=== PATIENT | female | born 1985 | race Caucasian/White ===

== ENCOUNTER → 2019-09-30 08:57 | Outpatient (BNVA) | payer MEDICAID, SELFPAY | PROVIDERS: PCP Family Medicine; Referring Provider Family Medicine; Visit Provider Psychiatry & Neurology Neurology | DX: M54.2 Cervicalgia (principal); M79.602 Pain in left arm; M79.601 Pain in right arm | CPT/HCPCS: 95886; 95912 ==

== ENCOUNTER 2019-12-24 05:47 | Day surgery (SDC) | payer MEDICAID, SELFPAY ==
[2019-12-24 05:58] VITALS: BP 130/84; PULSE 60; RESP 16; TEMP 35.9; O2SAT 97
--- NOTE | 2019-12-24 06:15 | W.PM.OPSUD ---
Surgery/Procedure H&P Update DATE OF PROCEDURE: December 24, 2019 DATE H&P PERFORMED: 12/15/19 H&P UPDATE INFORMATION: I have reviewed H&P completed within last 30 days, I have examined patient prior to procedure and No changes to prior documentation PREOP DIAGNOSIS: Morbid obesity associated with chronic GERD PRIMARY INDICATION FOR PROCEDURE: The same PLANNED PROCEDURE: Operation Date: 12/24/19 07:00 Proposed Procedures p EGD/58423/K21.9(Not Applicable) - Jose Giles MD
[2019-12-24] MEDS: sodium chloride 0.9% 1,000 ML 30 ML IV (06:19)
[2019-12-24 06:25] LABS: OR HCG Qualitative Urine Negative (Negative)
--- NOTE | 2019-12-24 06:25 | ANES.PREANE2 ---
Pre-Anesthetic Assessment Pre-Anesthetic Assessment: Height/Weight: Height 1.65 m Weight 129.274 kg Temp Pulse Resp BP Pulse Ox 96.6 F L 60 16 130/84 97 12/24/19 05:58 12/24/19 05:58 12/24/19 05:58 12/24/19 05:58 12/24/19 05:58 Preop Diagnosis: Morbid obesity associated with chronic GERD Proposed Procedure: Operation Date: 12/24/19 07:00 Proposed Procedures p EGD/41753/K21.9(Not Applicable) - Jose Giles MD Familial anesthetic complications: None Was Beta Charlie taken within 24 hours: N/A Last intake: Intake Last Liquid Date 12/23/19 Last Liquid Time 21:00 Last Solid Date 12/23/19 Last Solid Time 20:00 Social: Social History: No alcohol and No tobacco Exam: Pre-Anes Outpt Exam: alert, oriented x 3, clear to auscultation bilaterally and regular rate & rhythm Airway: Cervical ROM: WNL MP: 2 Dentition: Full Pulmonary: Pulmonary: Asthma (advairs 2x a day, doesn' require emergency inhaler) and Sleep apnea CV/HEM: Comments: states she takes hctz for swelling in hands in feet : : None reported Hepatic: Hepatic: None reported GI: GI: GERD Metabolic: Metabolic: Morbid obesity Musc/skel: Musc/skel: None reported Neuropsych: Neuropsych: None reported Anesthetic Plan: ASA status: 2 Anesthesia: MAC Risk of > 500 ml blood loss (7ml/kg in children): No Meds/Allergies Current Medications: Current Medications Generic Name Dose Route Start Last Admin Trade Name Freq PRN Reason Stop Dose Admin Sodium Chloride 1,000 mls @ 30 ml s/hr 12/24/19 06:00 12/24/19 06:19 Sodium Chloride 0.9% IV 30 mls/hr .Q24H LLOYD Administration PFSH Anesthesia PFSH: Medical History Anxiety Asthma GERD (gastroesophageal reflux disease) Hypertension Obesity Surgical History History of colonoscopy with polypectomy History of esophagogastroduodenoscopy (EGD) History of laparoscopic cholecystectomy History of tubal ligation Family History Denies family history of Anesthesia complication Bleeding disorder Social History Smoking and tobacco status: never smoked Second hand smoke exposure: No Alcohol intake: never Adopted: No Caregiver/support person: Yes Lives independently: Yes Household members: significant other Housing: House service: No Current occupational status: unemployed Current occupational exposures/hazards: No History of recent travel: No Sexually active: Yes Current gender identity: Female Ofelia/Mormonism: None Data Anesthesia Cardiac Studies: No Data to Display
[2019-12-24 07:05] VITALS: BP 106/73; PULSE 52; RESP 16; TEMP 36.7; O2SAT 96
--- NOTE | 2019-12-24 07:09 | ANE.PACU2 ---
Inpatient post-anesthesia follow up: Airway intact: Yes Vital signs: Temperature 98.0 F Pulse Rate 52 Respiratory Rate 16 Blood Pressure 106/73 Pulse Oximetry 96 Oxygen Delivery Me thod Room Air Oxygen Flow Rate Fraction of Inspir ed Oxygen Hydration adequate: Yes Nausea and vomiting: No Pain level: 1 Mental status: Baseline
[2019-12-24 07:12] VITALS: BP 116/77; PULSE 57; RESP 16; O2SAT 100
[2019-12-25 07:09] LABS: H. Pylori / CLO Test Negative
== END 2019-12-24 07:30 | disposition home or self-care (01) ==
PROVIDERS: PCP Family Medicine; Visit Provider Surgery
PROC: 0DJ08ZZ Inspection of Upper Intestinal Tract, Via Natural or Artificial Opening Endoscopic (ICD-10-PCS; CPT 43235; principal; 2019-12-24 07:00)
DX: K21.9 Gastro-esophageal reflux disease without esophagitis (principal); K29.70 Gastritis, unspecified, without bleeding; E66.01 Morbid (severe) obesity due to excess calories; Z68.42 Body mass index [BMI] 45.0-49.9, adult; F41.9 Anxiety disorder, unspecified; J45.909 Unspecified asthma, uncomplicated; I10 Essential (primary) hypertension
CPT/HCPCS: 43239; 12345; 81025; 84703; 87077; J2001; J2704; J7030

== ENCOUNTER 2020-01-21 20:06 | Inpatient (IN) | payer MEDICAID, SELFPAY ==
[2020-01-21 20:08] VITALS: BP 100/62; PULSE 66; RESP 18; TEMP 36.4; O2SAT 94; BMI 40.9
--- NOTE | 2020-01-21 20:21 | ECG_ITS ---
Measurements Intervals [place] Rate: 46 P: 28 [place]: 160 QRS: 18 QRSD: 88 T: 0 QT: 507 QTc: 447 SINUS BRADYCARDIA NONSPECIFIC T-WAVE ABNORMALITY No previous ECG available for comparison Electronically Signed On 01-22-2020 20:53:02 CDT by Jon Hinojosa M.D. [id number]
--- NOTE | 2020-01-21 20:29 | PC.NURSE ---
I called Poison control and spoke to ELIAS Bunn, she is sending information to the ER on this patient and information relayed to Dr. Calloway.
[2020-01-21 20:36] LABS: Basophils % 0.4 %; Eosinophils # 0.1 10^3/uL (0.0-0.8); Eosinophils % 1.3 %; Hematocrit 40.1 % (37.0-47.0); Hemoglobin 13.5 g/dL (11.5-15.3); Lymphocytes % 28.2 %; Mean Corpuscular HGB Conc 33.7 g/dL (30.0-36.0); Mean Corpuscular Hemoglobin 29.7 pg (28.0-34.0); Mean Corpuscular Volume 88.3 fL (81-99); Mean Platelet Volume 12.2 fL (7.4-10.4); Monocytes # 0.8 10^3/uL (0.2-0.9); Monocytes % 11.1 %; Neutrophils # 4.1 10^3/uL (1.8-7.7); Neutrophils % 58.9 %; Nucleated Red Blood Cells % 0 %; Platelet Count 257 10^3/cmm (130-400); Red Blood Count 4.54 10^6/uL (4.1-5.3); Red Cell Distribution Width 12.5 % (12.1-15.1)
[2020-01-21 20:57] LABS: Alanine Aminotransferase 18 U/L (0-33); Albumin Level 4.6 g/dL (3.5-5.2); Alkaline Phosphatase 67 IU/L (35-105); Anion Gap 16.4 (5-19); Blood Urea Nitrogen 11 mg/dL (6-20); Calcium 8.6 mg/dL (8.5-10.5); Carbon Dioxide 25 mmol/L (22-29); Chloride 100 mmol/L (98-107); Globulin 2.5 g/dL (1.3-4.6); Glomerular Filtration Rate 95.8 mL/min (90-130); Glucose 116 mg/dL (65-115); Osmolality Calculated 283 mOsm/kg (285-295); Potassium 3.4 mmol/L (3.5-5.1); Salicylate 0.4 mg/dL (3-10); Sodium 138 mmol/L (136-145); Total Bilirubin 0.3 mg/dL (0.15-1.2); Total Protein 7.1 g/dL (6.6-8.7)
[2020-01-21 21:00] LABS: ABG PCO2 42.5 mmHg (35-45); ABG PH Result 7.41 (7.35-7.45); Arterial Blood Gas Hematocrit 39.7 % (37-47); Base Excess ABG 1.9 mmol/L (-2.0-2.0); Blood Gas Allen Test Pos; Blood Gas Sample Site Radial, left; Blood Gas Sample Type Arterial; HCO3 ABG 26.9 mmol/L (22-26); Oxygen Device ROOM AIR; PO2 ABG 86.4 mmHg (80.0-100.0)
[2020-01-21 21:02] VITALS: BP 109/54; PULSE 45; RESP 14; O2SAT 96
[2020-01-21 21:49] LABS: Acetaminophen < 5.0 ug/mL (10-30); Alcohol Level < 10 mg/dL (0-10); Aspartate Amino Transferase 24 U/L (0-32)
[2020-01-21 21:58] LABS: HCG Qualitative Urine. Negative (Negative)
[2020-01-21 22:25] LABS: Urine Appearance Hazy (CLEAR); Urine Color Yellow (Yellow); pH Urine 5 (5-7)
[2020-01-21 22:26] LABS: Add Urine Microscopic? YES; Bilirubin Urine Neg (NEGATIVE); Blood Urine 2+ (Negative); Glucose Urine UA Norm (Normal); Ketones Urine Negative (Negative); Leukocyte Esterase Urine Negative (Negative); Nitrate Urine Negative (Negative); Protein Urine Neg (Negative); Specific Gravity, Urine 1.015 (1.005-1.030); Urobilinogen Urine Norm (Negative)
[2020-01-21 22:33] LABS: Amphetamines Screen Urine Negative (Negative); Barbiturates Screen Urine Negative (Negative); Benzodiazepines Screen Urine Negative (Negative); Cocaine Screen Urine Negative (Negative); Opiate Screen Urine Negative (Negative); PCP Screen Urine Negative (Negative); THC Screen Urine Negative (Negative)
[2020-01-21 22:41] VITALS: BP 97/50; PULSE 48; RESP 14; O2SAT 99
[2020-01-21 22:42] LABS: Bacteria Urine 1+; RBC Urine RARE /hpf (0-2); Squamous Epithelial Cell Urine 0-4 (0-5); WBC Urine RARE /hpf (0-5)
--- NOTE | 2020-01-21 23:15 | P.HP_ITS ---
Providers/Chief Complaint Primary Care Provider: Guilherme Rush Chief Complaint: OVERDOSE ATTEMPT History of Present Illness Marco Antonio Shelton is a 34 year old female who carries a history of morbid obesity, anxiety, hypertension, GERD was brought in by EMS after drug overdose. Patient is stating that she never attempted any suicidal attempts in the past, today she had an argument with her boyfriend who left her today, she left a text message to her cousin and took multiple tablets as an suicidal attempt. She took 15 tablets of 50 mg of trazodone, 9 tablets of 4 tizanidine and 9 to 10 tablets of Lexapro 10 mg. Her cousin checked on her right away, EMS was called, and route to the hospital she was bradycardic. Patient is denying any fever, chest pain, shortness of breath, diarrhea, irritability endorses suicidal ideation. She has 2 sons(10& 8-year-old). Messages left for her cousin was to take care of her children. Diagnostics in the ER revealed hypotension systolic blood pressure 96 mmHg, map 65, patient is awake alert able to protect her airways, she is drowsy, Bradycardia heart rate ranging between 55-59 Narcan was not given Review of Systems Const: Reports: body aches, fatigue, malaise and change in sleep pattern; Denies: fever(s) or chills Eyes: Denies: change in vision ENMT: Denies: throat pain Card: Denies: chest pain Resp: Denies: dyspnea GI: Denies: abdominal pain : Denies: flank pain Musc: Denies: neck pain Skin/Breast: Denies: rash Neuro: Denies: headache(s) Psych: Reports: depression and suicidal ideation Endo: Denies: polyuria Ramiro/Lymph: Denies: easy bruising All/Imm: Denies: urticaria Medications/Allergies Home Medications Medication Instructions Recorded Confirmed Last Taken Type escitalopram oxalate 10 mg tablet 10 mg PO DAILY 12/15/19 01/07/20 1 Day Ago History ~12/23/19 fluticasone 500 mcg-salmeterol 50 1 inh INHALATION BID 12/15/19 01/07/20 1 Day Ago History mcg/dose blistr powdr for ~12/23/19 inhalation hydrochlorothiazide 12.5 mg tablet 12.5 mg PO DAILY 12/15/19 01/07/20 12/24/19 History omeprazole 20 mg capsule,delayed 20 mg PO DAILY 12/15/19 01/07/20 12/24/19 History release simvastatin 20 mg tablet 20 mg PO DAILY 12/15/19 01/07/20 12/24/19 History tizanidine 4 mg capsule 4 mg PO Q6H PRN cap 12/15/19 01/07/20 2 Days Ago H istory ~12/22/19 trazodone 50 mg tablet 50 mg PO DAILY 12/15/19 01/07/20 1 Day Ago History ~12/23/19 Allergies Allergy/AdvReac Type Severity Reaction Status Date / Time No Known Allergies Allergy Verified 01/07/20 14:58 PFSH Acute PFSH: Medical History Anxiety Asthma Gastritis GERD (gastroesophageal reflux disease) Hypertension Obesity Surgical History History of colonoscopy with polypectomy History of esophagogastroduodenoscopy (EGD) History of laparoscopic cholecystectomy History of tubal ligation Family History Denies family history of Anesthesia complication Bleeding disorder Social History Smoking and tobacco status: never smoked Second hand smoke exposure: No Alcohol intake: never Adopted: No Caregiver/support person: Yes Lives independently: Yes Household members: significant other Housing: House service: No Current occupational status: unemployed Current occupational exposures/hazards: No History of recent travel: No Sexually active: Yes Current gender identity: Female Ofelia/Voodoo: None Vitals/I&O/Wt Last Vital Signs Temp 97.5 F L 01/21/20 20:08 Pulse 48 L 01/21/20 22:41 Resp 14 01/21/20 22:41 BP 97/50 01/21/20 22:41 Pulse Ox 99 01/21/20 22:41 Weight last 48 hrs Weight 111.584 kg Physical Exam Narrative: EXAM NARRATIVE: Head to toe examination Morbidly obese female lying comfortably in her bed Able to answer my questions appropriately but somnolent Able to protect her airway Bradycardia heart rate 55-59, map 65 No neurological deficit S1, S2 sinus bradycardia No signs of heart failure Abdomen soft, distended, visceral obesity Lungs are clear to auscultation EOMI, PERRLA, Skin does not show any sign ischemia gangrene ulcer or dehydration Active suicidal thoughts Data : 01/21/20 18:58 01/21/20 18:58 A&P Assessment and plan (1) Drug overdose: Status: Acute Qualifiers: Encounter type: initial encounter Injury intent: intentional self-harm Qualified Code(s): T50.902A - Poisoning by unspecified drugs, medicaments and b iological substances, intentional self-harm, initial encounter (2) Suicide attempt by multiple drug overdose: Status: Acute Qualifiers: Encounter type: initial encounter Qualified Code(s): T50.912A - Poisoning by multiple unspecified drugs, medicaments and biological substances, intentional self-harm, initial encounter (3) GERD (gastroesophageal reflux disease): Status: Acute (4) Obesity: Status: Acute Additional A&P Information Multiple drug overdose with suicidal attempt -96-hour hold ICU overnight monitoring Trazodone has alpha-1 H1 blocking activity as well and half-life is about 9 to 10 hours and prolonged in obese patients Currently mean arterial pressure is around 65, -Monitor liver function, monitor for hypotension orthostasis, serotonin syndrome -No active fever, shivering diarrhea muscle rigidity or seizures -QTc 447 -Would use fluids and monitor overnight to see if she would require vasopressors for prolonged hypotension Psych consult once she is stable DVT prophylaxis: Lovenox I will keep her n.p.o. for now because of her somnolent condition Attestations Medical Necessity Statement*: Anticipating stay in the hospital cross more than 2 midnights currently on 96-hour hold for suicidal attempt currently bradycardic and hypotension requiring ICU for closer monitoring Time Spent in Patient Care: 60 Coding Level of Care Code Acute Brake Press Operator for Leleg Fwd Diagnoses Drug overdose T5. Encounter type: initial encounter Injury intent: intentional self-harm Suicide attempt by multiple drug overdose T5. Encounter type: initial encounter GERD (gastroesophageal reflux disease) K21.9 Obesity E66.9
--- NOTE | 2020-01-21 23:16 | ED_ITS ---
HPI - Overdose General: Chief Complaint: Overdose Stated Complaint: OVERDOSE ATTEMPT Time Seen by Provider: 01/21/20 20:08 Source: patient and EMS Mode of arrival: EMS Limitations: no limitations History of Present Illness: HPI Narrative: 34-year-old female patient with a history of depression presents to the emergency department after an intentional drug overdose in a suicide attempt. According to the patient she took 15 tablets of the 50 mg trazodone tablets, 20 800 mg ibuprofen tablets, 9 tablets of tizanidine 4 mg each, 9 tablets of Lexapro 10 mg each. After she took the medication she called her friend to tell her friend to take care of her children and the friend rushed over and induced vomiting. According to EMS they did see some of the pills in her vomitus. Patient complains of being drowsy but otherwise no physical complaints. She apparently also tried to cut her wrist but she said the knife was blunt. The patient denies any prior suicide attempts. complaint: intentional overdose Onset (ago): hour(s) (2) Time: 18:00 Review of Systems General: Reports: 10 or more systems reviewed and unremarkable except in HPI and below Const: Denies: fever(s), chills or body aches Eyes: Denies: change in vision or blurry vision ENMT: Denies: throat pain, enlarged tonsils, odynophagia, hoarseness, mouth pain or swelling of lips/tongue Card: Denies: palpitations, irregular heart rhythm, edema or swelling of feet/ankles Resp: Denies: dyspnea, productive cough or non-productive cough GI: Denies: abdominal pain, nausea or vomiting : Denies: flank pain, difficulty voiding, dysuria, urinary frequency, urinary urgency or urinary hesitancy Musc: Denies: neck pain, back pain or extremity swelling Skin/Breast: Denies: rash, pruritus or erythema Neuro: Denies: headache(s), numbness in extremities or weakness in extremities Psych: Reports: depression and hopelessness Endo: Denies: polyuria, polydipsia or tired all the time [facility] PFSH: Medical History (Updated 01/21/20 @ 23:27 by Cynthia Calloway MD, [facility]) Anxiety Asthma Gastritis GERD (gastroesophageal reflux disease) Hypertension Obesity Surgical History History of colonoscopy with polypectomy History of esophagogastroduodenoscopy (EGD) History of laparoscopic cholecystectomy History of tubal ligation Family History Denies family history of Anesthesia complication Bleeding disorder Social History Smoking and tobacco status: never smoked Second hand smoke exposure: No Alcohol intake: never Adopted: No Caregiver/support person: Yes Lives independently: Yes Household members: significant other Housing: House service: No Current occupational status: unemployed Current occupational exposures/hazards: No History of recent travel: No Sexually active: Yes Current gender identity: Female Ofelia/Congregation: None Physical Exam Const: COMMON NORMALS: no acute distress, average body habitus, patient oriented x3, no limitations, healthy appearing and well nourished ORIENTATION/CONSCIOUSNESS: Yes Other orientation findings (drowsy) HENMT: COMMON NORMALS: normocephalic, atraumatic and moist oral mucous membranes HEAD & SCALP: normocephalic and atraumatic Eye: COMMON NORMALS: Equal, round and reactive pupils present, EOMs intact bilaterally, conjunctivae normal and no scleral icterus CONJUNCTIVA: Yes conjunctivae normal PUPIL: Yes Equal, round and reactive pupils present Neck/C-Spine: COMMON NORMALS: full ROM, supple, no meningeal signs, no JVD and No carotid bruits Chest: COMMONS NORMALS: normal inspection of the chest and normal palpation of entire chest wall Resp: COMMON NORMALS: normal respiratory effort, No retractions, No use of accessory muscles, clear to auscultation bilaterally and percussion normal AUSCULTATION: clear to auscultation bilaterally PERCUSSION: percussion normal Cardio: COMMON NORMALS: no JVD, regular rate, regular rhythm, S1 normal heart sound present, S2 normal heart sound present, No gallops present (Cardio), No clicks present (Cardio), No murmurs present (Cardio), No rub (Cardio) and Peripheral pulses 2+ throughout RATE: regular rate RHYTHM: regular rhythm HEART SOUNDS: S1 normal heart sound present and S2 normal heart sound present PERIPHERAL PULSES: Peripheral pulses 2+ throughout GI: COMMON NORMALS: Normal to inspection, nondistended, normoactive bowel sounds present, Soft to palpation, non-tender, No hepatosplenomegaly present, no masses and no bruits PALPATION: Yes Soft to palpation and Yes No hepatosplenomegaly present : COMMON NORMALS: Yes no CVA tenderness BLADDER/KIDNEY EXAM: Yes no CVA tenderness Back/Pelvis: COMMON NORMALS: no CVA tenderness Extremity: COMMON NORMALS: normal to inspection, full ROM, capillary refill normal, no calf tenderness and no pedal edema Neuro: COMMON NORMALS: patient oriented x3 MENINGEAL SIGNS: Yes no meningeal signs Skin: COMMON NORMALS: no rashes or lesions noted, no wounds, turgor normal, no jaundice, no petechiae and no mottling GENERAL SKIN EXAM: no rashes or lesions noted and turgor normal Course Consultations: Consultation #1: Dr. Gonzalez, hospitalist. He kindly accepted the patient to his service Time: 23:15 Vital Signs: Vital signs: Vital Signs Temperature 97.5 F L 01/21/20 20:08 Pulse Rate 48 L 01/21/20 22:41 Respiratory Rate 14 01/21/20 22:41 Blood Pressure 97/50 01/21/20 22:41 Pulse Oximetry 99 01/21/20 22:41 MDM - Overdose MDM Narrative: Medical decision making narrative: 34-year-old female patient with unintentional drug overdose in a suicide attempt. She has remained stable in the emergency department and is being admitted to the ICU for further evaluation and observation. After it is deemed safe she will be transferred to the neuropsychiatric unit for psychiatric management. Lab Data: Labs: Lab Results 01/21/20 01/21/20 01/21/20 Range/Units 18:58 18:58 20:25 WBC 7.0 (4.0-10.0) 10^3/ uL RBC 4.54 (4.1-5.3) 10^6/u L Hgb 13.5 (11.5-15.3) g/dL Hct 40.1 (37.0-47.0) % MCV 88.3 (81-99) fL MCH 29.7 (28.0-34.0) pg MCHC 33.7 (30.0-36.0) g/dL RDW 12.5 (12.1-15.1) % Plt Count 257 (130-400) 10^3/c mm MPV 12.2 H (7.4-10.4) fL Neut % (Auto) 58.9 % Lymph % (Auto) 28.2 % [place] % (Auto) 11.1 % Eos % (Auto) 1.3 % Baso % (Auto) 0.4 % Neut # (Auto) 4.1 (1.8-7.7) 10^3/u L Lymph # (Auto) 2.0 (0.8-4.8) 10^3/u L [place] # (Auto) 0.8 (0.2-0.9) 10^3/u L Eos # (Auto) 0.1 (0.0-0.8) 10^3/u L Baso # (Auto) 0.0 (0.0-0.1) 10^3/u L Nucleated RBC % (a uto) 0 % Nucleated RBCs # 0.0 /100WBC Specimen Type Arterial Sample Site Radial, left ABG pH 7.41 (7.35-7.45) ABG pCO2 42.5 (35-45) mmHg ABG pO2 86.4 (80.0-100.0) mmH g ABG HCO3 26.9 H (22-26) mmol/L ABG Base Excess 1.9 (-2.0-2.0) mmol/ L [place] Test Pos Hematocrit 39.7 (37-47) % O2 Delivery Device Room air Projection Technician ID hinja Sodium 138 (136-145) mmol/L Potassium 3.4 L (3.5-5.1) mmol/L Chloride 100 (98-107) mmol/L Carbon Dioxide 25 (22-29) mmol/L Anion Gap 16.4 (5-19) BUN 11 (6-20) mg/dL Creatinine 0.7 (0.5-0.9) mg/dL GFR Calculation 95.8 (90-130) mL/min Glucose 116 H (65-115) mg/dL Calculated Osmolal ity 283 L (285-295) mOsm/k g Calcium 8.6 (8.5-10.5) mg/dL Magnesium 2.0 (1.7-2.3) mg/dL Total Bilirubin 0.3 (0.15-1.2) mg/dL AST 24 (0-32) U/L ALT 18 (0-33) U/L Alkaline Phosphata se 67 (35-105) IU/L Total Protein 7.1 (6.6-8.7) g/dL Albumin 4.6 (3.5-5.2) g/dL Globulin 2.5 (1.3-4.6) g/dL HCG, Qual (Negative) Urine Color (Yellow) Urine Appearance (CLEAR) Urine pH (5-7) Ur Specific Gravit y (1.005-1.030) Urine Protein (Negative) Urine Glucose (UA) (Normal) Urine Ketones (Negative) Urine Blood (Negative) Urine Nitrate (Negative) Urine Bilirubin (NEGATIVE) Urine Urobilinogen (Negative) mg/dL Ur Leukocyte Martha ase (Negative) Urine RBC (0-2) /hpf Urine WBC (0-5) /hpf Ur Squamous Epith Cells (0-5) Urine Bacteria (NONE) Salicylates 0.4 L (3-10) mg/dL Urine Opiates Scre en (Negative) ng/mL Acetaminophen < 5.0 L (10-30) ug/mL Ur Barbiturates Sc reen (Negative) ng/mL Ur Phencyclidine S crn (Negative) ng/mL Ur Amphetamines Sc reen (Negative) ng/mL U Benzodiazepines Scrn (Negative) ng/mL Urine Cocaine Scre en (Negative) ng/mL U Marijuana (THC) Screen (Negative) ng/mL Ethyl Alcohol < 10 (0-10) mg/dL 01/21/20 01/21/20 01/21/20 Range/Units 20:30 20:30 20:30 WBC (4.0-10.0) 10^3/ uL RBC (4.1-5.3) 10^6/u L Hgb (11.5-15.3) g/dL Hct (37.0-47.0) % MCV (81-99) fL MCH (28.0-34.0) pg MCHC (30.0-36.0) g/dL RDW (12.1-15.1) % Plt Count (130-400) 10^3/c mm MPV (7.4-10.4) fL Neut % (Auto) % Lymph % (Auto) % [place] % (Auto) % Eos % (Auto) % Baso % (Auto) % Neut # (Auto) (1.8-7.7) 10^3/u L Lymph # (Auto) (0.8-4.8) 10^3/u L [place] # (Auto) (0.2-0.9) 10^3/u L Eos # (Auto) (0.0-0.8) 10^3/u L Baso # (Auto) (0.0-0.1) 10^3/u L Nucleated RBC % (a uto) % Nucleated RBCs # /100WBC Specimen Type Sample Site ABG pH (7.35-7.45) ABG pCO2 (35-45) mmHg ABG pO2 (80.0-100.0) mmH g ABG HCO3 (22-26) mmol/L ABG Base Excess (-2.0-2.0) mmol/ L [place]ago Test Hematocrit (37-47) % O2 Delivery Device Projection Technician ID Sodium (136-145) mmol/L Potassium (3.5-5.1) mmol/L Chloride (98-107) mmol/L Carbon Dioxide (22-29) mmol/L Anion Gap (5-19) BUN (6-20) mg/dL Creatinine (0.5-0.9) mg/dL GFR Calculation (90-130) mL/min Glucose (65-115) mg/dL Calculated Osmolal ity (285-295) mOsm/k g Calcium (8.5-10.5) mg/dL Magnesium (1.7-2.3) mg/dL Total Bilirubin (0.15-1.2) mg/dL AST (0-32) U/L ALT (0-33) U/L Alkaline Phosphata se (35-105) IU/L Total Protein (6.6-8.7) g/dL Albumin (3.5-5.2) g/dL Globulin (1.3-4.6) g/dL HCG, Qual Negative (Negative) Urine Color Yellow (Yellow) Urine Appearance Hazy A (CLEAR) Urine pH 5 (5-7) Ur Specific Gravit y 1.015 (1.005-1.030) Urine Protein Neg (Negative) Urine Glucose (UA) Norm (Normal) Urine Ketones Negative (Negative) Urine Blood 2+ H (Negative) Urine Nitrate Negative (Negative) Urine Bilirubin Neg (NEGATIVE) Urine Urobilinogen Norm (Negative) mg/dL Ur Leukocyte Martha ase Negative (Negative) Urine RBC Rare (0-2) /hpf Urine WBC Rare (0-5) /hpf Ur Squamous Epith Cells 0-4 H (0-5) Urine Bacteria 1+ H (NONE) Salicylates (3-10) mg/dL Urine Opiates Scre en Negative (Negative) ng/mL Acetaminophen (10-30) ug/mL Ur Barbiturates Sc reen Negative (Negative) ng/mL Ur Phencyclidine S crn Negative (Negative) ng/mL Ur Amphetamines Sc reen Negative (Negative) ng/mL U Benzodiazepines Scrn Negative (Negative) ng/mL Urine Cocaine Scre en Negative (Negative) ng/mL U Marijuana (THC) Screen Negative (Negative) ng/mL Ethyl Alcohol (0-10) mg/dL EKG Data^: EKG 1: Attestation: I personally reviewed and interpreted this EKG as follows: EKG interpretation date: 01/21/20 EKG interpretation time: 20:33 Prior EKG tracings: not available for review Interpretation: Sinus bradycardia. Heart rate 46 beats per minutes. No QT prolongation. Normal axis. No ST changes. Discharge Plan Discharge Patient Disposition: Admitted As Inpatient Admit Provider: Chad Gonzalez Clinical Impression: Drug overdose, Suicide attempt by multiple drug overdose Condition: Stable Prescriptions: No Action escitalopram oxalate 10 mg tablet 10 mg PO DAILY RF: 0 hydrochlorothiazide 12.5 mg tablet 12.5 mg PO DAILY RF: 0 omeprazole 20 mg capsule,delayed release(DR/EC) 20 mg PO DAILY RF: 0 trazodone 50 mg tablet 50 mg PO DAILY RF: 0 simvastatin 20 mg tablet 20 mg PO DAILY RF: 0 tizanidine 4 mg capsule 4 mg PO Q6H PRN (Reason: breathing) RF: 0 fluticasone propion-salmeterol 500-50 mcg/dose blister with device 1 inh INHALATION BID RF: 0 Referrals: Guilherme Rush [Primary Care Provider] - Coding Level of Care Code ED Scrap Crusher for Chg [place]
[2020-01-21 23:57] VITALS: BP 96/57; PULSE 48; RESP 14; O2SAT 95
[2020-01-22] VITALS (36 sets, daily range): BP systolic 85–128; BP diastolic 39–92; PULSE 44–85; RESP 0–28; TEMP 36.2–36.8; O2SAT 94–99
[2020-01-22] MEDS: sodium chloride 0.9% 1,000 ML 100 ML IV (00:08)
[2020-01-22 01:35] LABS: Magnesium 2.2 mg/dL (1.7-2.3)
[2020-01-22] MEDS: enoxaparin 40 mg/0.4 mL Syringe SUBCUT (01:38)
[2020-01-22] MEDS: potassium chloride ER 10 mEq Tablet 40 MEQ PO (01:38)
[2020-01-22] MEDS: sodium chloride 0.9% 1,000 ML 75 ML IV ×2 (01:41→15:25)
[2020-01-22] MEDS: DOPamine drip 400 MG/250 ML PREMIX 20.9 MG IV (02:13)
--- NOTE | 2020-01-22 02:27 | PC.NURSE ---
0130 Received report from ELIAS Bunn who accompanied patient to room. Patient in no apparent distress but is very lethargic. Patient stood to transport herself to ICU bed. Assessment done by this nurse. Patient continues to have bradycardia. One-on-One sitter present in room. Call light in place, bed in lowest position. Notified Dr. Gonzalez that patient continues to be bradycardic and order was placed for dopamine titratable drip. Will continue to monitor.
[2020-01-22 05:29] LABS: Basophils % 0.5 %; Eosinophils # 0.1 10^3/uL (0.0-0.8); Eosinophils % 1.3 %; Hematocrit 37.8 % (37.0-47.0); Hemoglobin 12.6 g/dL (11.5-15.3); Lymphocytes % 33.6 %; Mean Corpuscular HGB Conc 33.3 g/dL (30.0-36.0); Mean Corpuscular Hemoglobin 30.3 pg (28.0-34.0); Mean Corpuscular Volume 90.9 fL (81-99); Mean Platelet Volume 11.1 fL (7.4-10.4); Monocytes # 0.6 10^3/uL (0.2-0.9); Monocytes % 10.3 %; Neutrophils # 3.2 10^3/uL (1.8-7.7); Nucleated Red Blood Cells % 0 %; Platelet Count 247 10^3/cmm (130-400); Red Blood Count 4.16 10^6/uL (4.1-5.3); Red Cell Distribution Width 12.7 % (12.1-15.1)
[2020-01-22 06:07] LABS: Alanine Aminotransferase 13 U/L (0-33); Albumin Level 3.7 g/dL (3.5-5.2); Alkaline Phosphatase 58 IU/L (35-105); Anion Gap 14.8 (5-19); Aspartate Amino Transferase 15 U/L (0-32); Blood Urea Nitrogen 8 mg/dL (6-20); Calcium 8.1 mg/dL (8.5-10.5); Carbon Dioxide 26 mmol/L (22-29); Chloride 102 mmol/L (98-107); Globulin 2.7 g/dL (1.3-4.6); Glomerular Filtration Rate 114.4 mL/min (90-130); Glucose 133 mg/dL (65-115); Osmolality Calculated 288 mOsm/kg (285-295); Sodium 140 mmol/L (136-145); Thyroid Stimulating Hormone 1.24 uIU/mL (0.27-4.20); Total Bilirubin 0.5 mg/dL (0.15-1.2); Total Protein 6.4 g/dL (6.6-8.7)
[2020-01-22 06:08] LABS: Potassium 2.8 mmol/L (3.5-5.1)
--- NOTE | 2020-01-22 06:11 | PC.NURSE ---
Lab called critical value for potassium at 2.8. Dr. Gonzalez notified and will put in order for another dose of potassium.
[2020-01-22] MEDS: potassium chloride premix 40 MEQ/100 ML PREMIX 25 MEQ IV ×3 (06:57→17:44)
[2020-01-22] MEDS: lidocaine 1% INJ 20 mL 5 ML IV (06:57)
--- NOTE | 2020-01-22 07:33 | ECG_ITS ---
Measurements Intervals [place] Rate: 74 P: 63 [place]: 162 QRS: 13 QRSD: 90 T: 11 QT: 519 QTc: [address] DEPRESSION [0.05+ mV ST DEPRESSION] PROLONGED QT INTERVAL No previous ECG available for comparison Electronically Signed On 01-22-2020 20:53:49 CDT by Jon Hinojosa M.D. [id number]
[2020-01-22 08:54] LABS: INR 1.08 (0.8-1.2)
[2020-01-22] MEDS: pantoprazole 40 mg SDV IVP ×2 (09:18→20:13)
--- NOTE | 2020-01-22 11:36 | ECG_ITS ---
Measurements Intervals [place] Rate: 55 P: 33 [place]: 155 QRS: 12 QRSD: 90 T: -2 QT: 570 QTc: 545 SINUS BRADYCARDIA PROLONGED QT INTERVAL No previous ECG available for comparison Electronically Signed On 01-22-2020 20:56:07 CDT by Jon Hinojosa M.D. [id number]
[2020-01-22 11:44] LABS: Basophils % 0.5 %; Eosinophils % 0.2 %; Hematocrit 35.3 % (37.0-47.0); Hemoglobin 11.8 g/dL (11.5-15.3); Lymphocytes # 1.2 10^3/uL (0.8-4.8); Lymphocytes % 14.2 %; Mean Corpuscular HGB Conc 33.4 g/dL (30.0-36.0); Mean Corpuscular Hemoglobin 30.2 pg (28.0-34.0); Mean Corpuscular Volume 90.3 fL (81-99); Mean Platelet Volume 11.3 fL (7.4-10.4); Monocytes % 12.6 %; Neutrophils # 5.9 10^3/uL (1.8-7.7); Neutrophils % 72.3 %; Nucleated Red Blood Cells % 0 %; Platelet Count 225 10^3/cmm (130-400); Red Blood Count 3.91 10^6/uL (4.1-5.3); Red Cell Distribution Width 12.6 % (12.1-15.1); White Blood Count 8.2 10^3/uL (4.0-10.0)
[2020-01-22] MEDS: magnesium sulfate premix 2 GM/50 ML PIGGYBACK IV (12:00)
[2020-01-22 12:05] LABS: Alanine Aminotransferase 12 U/L (0-33); Albumin Level 3.6 g/dL (3.5-5.2); Alkaline Phosphatase 56 IU/L (35-105); Anion Gap 14.6 (5-19); Aspartate Amino Transferase 14 U/L (0-32); Blood Urea Nitrogen 8 mg/dL (6-20); Carbon Dioxide 25 mmol/L (22-29); Chloride 104 mmol/L (98-107); Globulin 2.8 g/dL (1.3-4.6); Glomerular Filtration Rate 114.4 mL/min (90-130); Glucose 128 mg/dL (65-115); Osmolality Calculated 288 mOsm/kg (285-295); Potassium 3.6 mmol/L (3.5-5.1); Sodium 140 mmol/L (136-145); Total Bilirubin 0.6 mg/dL (0.15-1.2); Total Protein 6.4 g/dL (6.6-8.7)
[2020-01-22] MEDS: lactated ringers 500 ML 999 ML IV (12:05)
[2020-01-22 12:21] LABS: Magnesium 1.9 mg/dL (1.7-2.3); Phosphorus 2.6 mg/dL (2.5-4.5)
--- NOTE | 2020-01-22 14:45 | ECG_ITS ---
Measurements Intervals [place] Rate: 58 P: 61 [place]: 156 QRS: 23 QRSD: 89 T: 9 QT: 529 QTc: 521 SINUS BRADYCARDIA LOW QRS VOLTAGE IN PRECORDIAL LEADS [QRS DEFLECTION < 1.0 mV IN CHEST LEADS] PROLONGED QT INTERVAL No previous ECG available for comparison Electronically Signed On 01-22-2020 21:02:57 CDT by Jon Hinojosa M.D. [id number]
--- NOTE | 2020-01-22 15:17 | PC.NURSE ---
Mediation scans late due to [employer] working to resolve problem. Meds will be scanned as soon as possible.
--- NOTE | 2020-01-22 15:30 | PM.PN ---
Subjective Subjective: Interval history: This morning patient is awake, alert,, states that last night she took many pills of ibuprofen, trazodone, tizanidine, escitalopram, currently denying chest pain, shortness of breath, lightheadedness, dizziness, denies any significant cardiac condition, denies any hematemesis, denies any nausea, denies any black stools Vitals/I&O/Wt Last Vital Signs Temp 98.3 F 01/22/20 12:00 Pulse 55 L 01/22/20 12:00 Resp 12 01/22/20 12:00 BP 97/51 01/22/20 12:00 Pulse Ox 98 01/22/20 12:00 01/22/20 01/22/20 01/22/20 06:59 14:59 22:59 Intake Total 182.475 / 921.319 5720 / 1182.475 Output Total 400 / 400 100 / 100 Balance -400 / -400 82.475 / 82.475 1000 / 1082.475 Weight last 48 hrs Weight 111.584 kg Physical Exam Const: COMMON NORMALS: no acute distress and patient oriented x3 HENMT: COMMON NORMALS: normocephalic HEAD & SCALP: normocephalic Neck/C-Spine: COMMON NORMALS: no JVD Resp: COMMON NORMALS: normal respiratory effort, No retractions, No use of accessory muscles and clear to auscultation bilaterally AUSCULTATION: clear to auscultation bilaterally Cardio: COMMON NORMALS: no JVD, regular rate, regular rhythm, S1 normal heart sound present and S2 normal heart sound present RATE: regular rate RHYTHM: regular rhythm HEART SOUNDS: S1 normal heart sound present and S2 normal heart sound present GI: COMMON NORMALS: Normal to inspection, nondistended, normoactive bowel sounds present, Soft to palpation, non-tender, No hepatosplenomegaly present, no masses and no bruits PALPATION: Yes Soft to palpation and Yes No hepatosplenomegaly present Extremity: COMMON NORMALS: capillary refill normal, no clubbing, cyanosis or edema, no calf tenderness and no pedal edema Neuro: COMMON NORMALS: patient oriented x3 Psych: COMMON NORMALS: mental status grossly normal Data : 01/22/20 11:32 01/22/20 11:32 A&P Assessment and plan (1) Drug overdose: -Tizanidine, Lexapro, trazodone, ibuprofen Status: Acute Qualifiers: Encounter type: initial encounter Injury intent: intentional self-harm Qualified Code(s): T50. - Poisoning by unspecified drugs, medicaments and biological substances, intentional self-harm, initial encounter (2) Suicide attempt by multiple drug overdose: -We will have psychiatry see the patient when medically stable Status: Acute Qualifiers: Encounter type: initial encounter Qualified Code(s): T50.2A - Poisoning by multiple unspecified drugs, medicaments and biological substances, intentional self-harm, initial encounter (3) GERD (gastroesophageal reflux disease): Status: Acute (4) Obesity: Status: Acute (5) QT prolongation: -QTc as long as 545 ms -Likely secondary to hypokalemia, hypomagnesemia, trazodone, Lexapro -Give 2 g of magnesium sulfate -Maintain magnesium levels greater than 2, check magnesium levels this afternoon -Give 80 mEq of potassium, as potassium levels were 3.6, 1 potassium levels of 4.5, recheck potassium levels this afternoon -Check QTC every 3 hours -Poison control is monitoring Status: Acute (6) Hypomagnesemia: Status: Acute (7) Hypokalemia: Status: Acute (8) Serotonin syndrome: -Patient looks a bit flushed, no tachycardia -Currently in timeframe for serotonin syndrome, continue to monitor closely Status: Acute (9) Bradycardia: -Likely secondary to Lexapro, trazodone -Atropine as needed -Monitor QTC closely Status: Acute Additional A&P Information Psych consult once she is stable DVT prophylaxis: Lovenox I will keep her n.p.o. for now because of her somnolent condition Attestations Medical Necessity Statement*: Patient requires continued hospitalization due to drug overdose, QTC prolongation, hypokalemia, bradycardia, suicide attempt Coding Level of Care Code Acute Beater Room Supervisor for Chg Fwd Diagnoses Drug overdose T5 Encounter type: initial encounter Injury intent: intentional self-harm Suicide attempt by multiple drug overdose T5 Encounter type: initial encounter GERD (gastroesophageal reflux disease) K21.9 Obesity E66.9 QT prolongation R94.31 Hypomagnesemia E83.42 Hypokalemia E87.6 Serotonin syndrome G25.79 Bradycardia R00.1
[2020-01-22 17:05] LABS: Alanine Aminotransferase 11 U/L (0-33); Albumin Level 3.5 g/dL (3.5-5.2); Alkaline Phosphatase 53 IU/L (35-105); Anion Gap 12.4 (5-19); Aspartate Amino Transferase 12 U/L (0-32); Blood Urea Nitrogen 7 mg/dL (6-20); Calcium 8.1 mg/dL (8.5-10.5); Carbon Dioxide 24 mmol/L (22-29); Chloride 108 mmol/L (98-107); Globulin 2.1 g/dL (1.3-4.6); Glomerular Filtration Rate 141.2 mL/min (90-130); Glucose 104 mg/dL (65-115); Magnesium 2.7 mg/dL (1.7-2.3); Osmolality Calculated 286 mOsm/kg (285-295); Phosphorus 3.1 mg/dL (2.5-4.5); Potassium 4.4 mmol/L (3.5-5.1); Sodium 140 mmol/L (136-145); Total Bilirubin 0.5 mg/dL (0.15-1.2); Total Protein 5.6 g/dL (6.6-8.7)
--- NOTE | 2020-01-22 17:45 | ECG_ITS ---
Measurements Intervals [place] Rate: 59 P: 28 [place]: 157 QRS: 20 QRSD: 98 T: 8 QT: 478 QTc: 474 SINUS BRADYCARDIA PROLONGED QT INTERVAL No previous ECG available for comparison Electronically Signed On 01-22-2020 21:05:08 CDT by Jon Hinojosa M.D. [id number]
--- NOTE | 2020-01-22 19:24 | PC.NURSE ---
shift summary: Pt much improved this evening from this am. She is more alert. QTc interval decreasing after the 2 gram Mag and bolus. Second 40 mEq K-Ye finishing infusing now. Dopamine off around 1100. She did sleep most of the day. SHe had difficulty urinating, but just recently put out 750ml. This morning while on BSC she had an orthostatic BP almost looked like a seizure, episode. She became very light headed but was able to get back in bed then she promptly vomited. Greenish yellow emesis with some pill particles noted. Dr Amin was informed of the incident. (This happened , prior to bolus and magnesium). She was able to get up to BSC without difficulty tonight. She has had her next of kin contact call and check on her. The person caring for her children called to check on her siad the kids where scare. She was told by this nurse that tell them their Mommy was being well care for in ICU and she should be well enough to move out tomorrow.
--- NOTE | 2020-01-22 20:45 | ECG_ITS ---
Measurements Intervals [place] Rate: 59 P: 59 [place]: 156 QRS: 16 QRSD: 88 T: 5 QT: 486 QTc: 484 SINUS BRADYCARDIA WITH SINUS ARRHYTHMIA PROLONGED QT INTERVAL Compared to ECG 01/22/2020 15:10:02 No significant changes Electronically Signed On 01-22-2020 21:05:33 CDT by Jon Hinojosa M.D. [id number]
--- NOTE | 2020-01-22 23:45 | ECG_ITS ---
Measurements Intervals [place] Rate: 63 P: 46 [place]: 163 QRS: 17 QRSD: 97 T: 6 QT: 468 QTc: 481 SINUS RHYTHM PROLONGED QT INTERVAL Compared to ECG 01/22/2020 20:59:55 Sinus bradycardia no longer present Sinus arrhythmia no longer present Electronically Signed On 01-24-2020 15:17:01 CDT by Jon Hinojosa M.D. [id number]
[2020-01-23] VITALS (21 sets, daily range): BP systolic 87–142; BP diastolic 51–79; PULSE 57–113; RESP 12–27; TEMP 36.6–37.1; O2SAT 92–98
[2020-01-23] MEDS: enoxaparin 40 mg/0.4 mL Syringe SUBCUT (00:52)
[2020-01-23 03:05] LABS: Glucose Point of Care 114 mg/dL (70-110)
--- NOTE | 2020-01-23 04:00 | PC.NURSE ---
0300 Patient states she is feeling shaky and requests that her blood sugar be checked. Bedside glucose is 114. Patient's vital signs are stable. Will continue to monitor. 0400 Patient is feeling better . Resting comfortably in bed. Sitter at bedside. Vital signs stable. Will continue to monitor.
--- NOTE | 2020-01-23 04:10 | PC.NURSE ---
1900 Report given by ELIAS Ramon. Patient is resting comfortably and sitter is at bedside. Vital signs are currently stable and patient is alert and oriented. IV fluids are running at 75 mL/hr. Bed in lowest position. Call light in place. 0000 Patient has been up to the bedside commode a few times and has had 3 loose stools. She is not having any issues getting up and walking to the bedside commode. Sitter is at bedside. Patient has no complaints and vital signs are stable.
[2020-01-23] MEDS: sodium chloride 0.9% 1,000 ML 75 ML IV ×2 (04:40→18:39)
[2020-01-23 06:01] LABS: Basophils % 0.5 %; Eosinophils # 0.1 10^3/uL (0.0-0.8); Eosinophils % 2.1 %; Hematocrit 32.8 % (37.0-47.0); Hemoglobin 10.6 g/dL (11.5-15.3); Lymphocytes # 1.5 10^3/uL (0.8-4.8); Lymphocytes % 34.4 %; Mean Corpuscular HGB Conc 32.3 g/dL (30.0-36.0); Mean Corpuscular Hemoglobin 29.9 pg (28.0-34.0); Mean Corpuscular Volume 92.4 fL (81-99); Mean Platelet Volume 11.5 fL (7.4-10.4); Monocytes # 0.5 10^3/uL (0.2-0.9); Monocytes % 11.6 %; Neutrophils # 2.2 10^3/uL (1.8-7.7); Neutrophils % 51.2 %; Nucleated Red Blood Cells % 0 %; Platelet Count 188 10^3/cmm (130-400); Red Blood Count 3.55 10^6/uL (4.1-5.3); Red Cell Distribution Width 13.1 % (12.1-15.1); White Blood Count 4.3 10^3/uL (4.0-10.0)
[2020-01-23 06:26] LABS: Alanine Aminotransferase 13 U/L (0-33); Albumin Level 3.3 g/dL (3.5-5.2); Alkaline Phosphatase 48 IU/L (35-105); Anion Gap 12.8 (5-19); Aspartate Amino Transferase 14 U/L (0-32); Blood Urea Nitrogen 3 mg/dL (6-20); Calcium 7.9 mg/dL (8.5-10.5); Carbon Dioxide 24 mmol/L (22-29); Chloride 108 mmol/L (98-107); Globulin 2.5 g/dL (1.3-4.6); Glomerular Filtration Rate 141.2 mL/min (90-130); Glucose 101 mg/dL (65-115); Magnesium 2.2 mg/dL (1.7-2.3); Osmolality Calculated 288 mOsm/kg (285-295); Phosphorus 2.6 mg/dL (2.5-4.5); Potassium 3.8 mmol/L (3.5-5.1); Sodium 141 mmol/L (136-145); Total Bilirubin 0.4 mg/dL (0.15-1.2); Total Protein 5.8 g/dL (6.6-8.7)
--- NOTE | 2020-01-23 07:57 | ECG_ITS ---
Measurements Intervals [place] Rate: 73 P: 50 SD: 162 QRS: 21 QRSD: 89 T: 10 QT: 428 QTc: 473 SINUS RHYTHM Compared to ECG 01/22/2020 20:59:55 Sinus bradycardia no longer present Sinus arrhythmia no longer present Prolonged QT interval no longer present Electronically Signed On 01-24-2020 14:57:13 CDT by Jon Hinojosa M.D. [id number]
[2020-01-23] MEDS: potassium chloride premix 40 MEQ/100 ML PREMIX 25 MEQ IV (09:13)
[2020-01-23] MEDS: pantoprazole 40 mg SDV IVP ×2 (09:13→21:22)
--- NOTE | 2020-01-23 10:41 | PC.NURSE ---
Mask offered, pt declined.
--- NOTE | 2020-01-23 15:31 | PM.PN ---
Subjective Subjective: Interval history: This morning, patient has no significant complaints, no chest pain, no palpitations, no shortness of breath, no lightheadedness, no dizziness, no fevers, no chills, no tremors, no diarrhea Vitals/I&O/Wt Last Vital Signs Temp 98.8 F 01/23/20 14:00 Pulse 84 01/23/20 14:00 Resp 18 01/23/20 14:00 BP 112/61 01/23/20 14:00 Pulse Ox 96 01/23/20 14:00 01/23/20 01/23/20 01/23/20 06:59 14:59 22:59 Intake Total 993.75 / 4514.558 1050 / 1050 Balance 993.75 / 3664.558 1050 / 1050 Weight last 48 hrs Weight 111.584 kg Physical Exam Const: COMMON NORMALS: no acute distress and patient oriented x3 HENMT: COMMON NORMALS: normocephalic HEAD & SCALP: normocephalic Neck/C-Spine: COMMON NORMALS: no JVD Resp: COMMON NORMALS: normal respiratory effort, No retractions, No use of accessory muscles and clear to auscultation bilaterally AUSCULTATION: clear to auscultation bilaterally Cardio: COMMON NORMALS: no JVD, regular rate, regular rhythm, S1 normal heart sound present and S2 normal heart sound present RATE: regular rate RHYTHM: regular rhythm HEART SOUNDS: S1 normal heart sound present and S2 normal heart sound present GI: COMMON NORMALS: Normal to inspection, nondistended, normoactive bowel sounds present, Soft to palpation, non-tender, No hepatosplenomegaly present, no masses and no bruits PALPATION: Yes Soft to palpation and Yes No hepatosplenomegaly present Extremity: COMMON NORMALS: capillary refill normal, no clubbing, cyanosis or edema, no calf tenderness and no pedal edema Neuro: COMMON NORMALS: patient oriented x3 Psych: COMMON NORMALS: mental status grossly normal Data : 01/23/20 05:34 01/23/20 05:34 A&P Assessment and plan (1) Drug overdose: -Tizanidine, Lexapro, trazodone, ibuprofen Status: Acute Qualifiers: Encounter type: initial encounter Injury intent: intentional self-harm Qualified Code(s): T50. - Poisoning by unspecified drugs, medicaments and biological substances, intentional self-harm, initial encounter (2) Suicide attempt by multiple drug overdose: -We will have psychiatry see the patient when medically stable Status: Acute Qualifiers: Encounter type: initial encounter Qualified Code(s): T50.912A - Poisoning by multiple unspecified drugs, medicaments and biological substances, intentional self-harm, initial encounter (3) GERD (gastroesophageal reflux disease): Status: Acute (4) Obesity: Status: Acute (5) QT prolongation: -QTc as long as 545 ms -Likely secondary to hypokalemia, hypomagnesemia, trazodone, Lexapro -Maintain magnesium levels greater than 2, check magnesium levels this afternoon -Maintain potassium levels around 4.5 -Last QTC 473 ms -Poison control is monitoring Status: Acute (6) Hypomagnesemia: Status: Acute (7) Hypokalemia: Status: Acute (8) Serotonin syndrome: -Patient looks a bit flushed, no tachycardia -Currently in timeframe for serotonin syndrome, continue to monitor closely Status: Acute (9) Bradycardia: -Likely secondary to Lexapro, trazodone -Atropine as needed -Monitor QTC closely Status: Acute Additional A&P Information Psych consult once she is stable Likely move out of the ICU in the next 24 hours, to n.p.u DVT prophylaxis: Lovenox Attestations Medical Necessity Statement*: Patient requires continued hospitalization for suicide attempt, drug overdose, QTc prolongation Coding Level of Care Code Acute Map Editor for [facility] Fwd Diagnoses Drug overdose T5 Encounter type: initial encounter Injury intent: intentional self-harm Suicide attempt by multiple drug overdose T5. Encounter type: initial encounter GERD (gastroesophageal reflux disease) K21.9 Obesity E66.9 QT prolongation R94.31 Hypomagnesemia E83.42 Hypokalemia E87.6 Serotonin syndrome G25.79 Bradycardia R00.1
[2020-01-24] VITALS (14 sets, daily range): BP systolic 99–144; BP diastolic 65–83; PULSE 59–72; RESP 16–22; TEMP 36.9–37.2; O2SAT 92–100
[2020-01-24] MEDS: enoxaparin 40 mg/0.4 mL Syringe SUBCUT (00:08)
--- NOTE | 2020-01-24 00:11 | PC.NURSE ---
1899 Report given by ELIAS Ramon. Patient is resting comfortably in no apparent distress. Sitter is at bedside. Vital signs are stable. Bed in lowest position, call light in place. Will continue to monitor. 2144 Medication reconciliation done with patient. Home meds returned to [facility]. Patient is resting comfortably. Vital signs are stable. Sitter is present at bedside.
--- NOTE | 2020-01-24 04:55 | PC.NURSE ---
Patient turned over in bed very abruptly and pulled IV out. Catheter was intact. Minimal bleeding at the site. 2x2 gauze was applied and site was wrapped in Koban. New 20g IV was placed in right forearm.
[2020-01-24 05:06] LABS: Basophils % 0.4 %; Eosinophils # 0.1 10^3/uL (0.0-0.8); Eosinophils % 1.8 %; Hematocrit 32.6 % (37.0-47.0); Hemoglobin 10.4 g/dL (11.5-15.3); Lymphocytes # 1.8 10^3/uL (0.8-4.8); Lymphocytes % 36.9 %; Mean Corpuscular HGB Conc 31.9 g/dL (30.0-36.0); Mean Corpuscular Hemoglobin 30.1 pg (28.0-34.0); Mean Corpuscular Volume 94.5 fL (81-99); Monocytes # 0.5 10^3/uL (0.2-0.9); Monocytes % 10.4 %; Neutrophils # 2.5 10^3/uL (1.8-7.7); Neutrophils % 50.3 %; Nucleated Red Blood Cells % 0 %; Platelet Count 187 10^3/cmm (130-400); Red Blood Count 3.45 10^6/uL (4.1-5.3); Red Cell Distribution Width 13.2 % (12.1-15.1); White Blood Count 4.9 10^3/uL (4.0-10.0)
[2020-01-24 05:29] LABS: Alanine Aminotransferase 13 U/L (0-33); Albumin Level 3.4 g/dL (3.5-5.2); Alkaline Phosphatase 47 IU/L (35-105); Anion Gap 11.1 (5-19); Aspartate Amino Transferase 15 U/L (0-32); Blood Urea Nitrogen 6 mg/dL (6-20); Calcium 8.4 mg/dL (8.5-10.5); Carbon Dioxide 26 mmol/L (22-29); Chloride 109 mmol/L (98-107); Globulin 2.2 g/dL (1.3-4.6); Glomerular Filtration Rate 114.4 mL/min (90-130); Glucose 108 mg/dL (65-115); Magnesium 2.1 mg/dL (1.7-2.3); Osmolality Calculated 290 mOsm/kg (285-295); Phosphorus 3.6 mg/dL (2.5-4.5); Potassium 4.1 mmol/L (3.5-5.1); Sodium 142 mmol/L (136-145); Total Bilirubin 0.2 mg/dL (0.15-1.2); Total Protein 5.6 g/dL (6.6-8.7)
--- NOTE | 2020-01-24 07:24 | ECG_ITS ---
Measurements Intervals [place] Rate: 61 P: 14 SD: 156 QRS: 13 QRSD: 85 T: -1 QT: 438 QTc: 444 SINUS RHYTHM MODERATE T-WAVE ABNORMALITY, CONSIDER ANTERIOR ISCHEMIA [-0.1+ mV T WAVE IN V3/V4] Compared to ECG 01/22/2020 20:59:55 T-wave abnormality now present Possible ischemia now present Sinus bradycardia no longer present Sinus arrhythmia no longer present Prolonged QT interval no longer present Electronically Signed On 01-24-2020 15:04:00 CDT by Jon Hinojosa M.D. [id number]
[2020-01-24] MEDS: pantoprazole 40 mg SDV IVP (08:58)
--- NOTE | 2020-01-24 11:21 | PC.NURSE ---
Addison faxed to NPU. Further verbal report given to ELIAS Simmons. Pt transferred to NPU with belongings. Belongings: clothing, silviano ring with purple stone, wallet and home medications.
--- NOTE | 2020-01-24 13:50 | PM.PN ---
Subjective Subjective: Interval history: This morning patient has no complaints, no chest pain, no shortness of breath, no lightheadedness, no dizziness, no nausea, no vomiting Vitals/I&O/Wt Last Vital Signs Temp 98.4 F 01/24/20 12:10 Pulse 69 01/24/20 12:10 Resp 18 01/24/20 12:10 BP 117/72 01/24/20 12:10 Pulse Ox 97 01/24/20 11:51 01/23/20 01/24/20 01/24/20 22:59 06:59 14:59 Intake Total 1500 / 2550 1495 / 1495 Output Total 500 / 500 1000 / 1500 Balance 1000 / 0 -1000 / 1050 1495 / 1495 Physical Exam Const: COMMON NORMALS: no acute distress and patient oriented x3 HENMT: COMMON NORMALS: normocephalic HEAD & SCALP: normocephalic Neck/C-Spine: COMMON NORMALS: no JVD Resp: COMMON NORMALS: normal respiratory effort, No retractions, No use of accessory muscles and clear to auscultation bilaterally AUSCULTATION: clear to auscultation bilaterally Cardio: COMMON NORMALS: no JVD, regular rate, regular rhythm, S1 normal heart sound present and S2 normal heart sound present RATE: regular rate RHYTHM: regular rhythm HEART SOUNDS: S1 normal heart sound present and S2 normal heart sound present GI: COMMON NORMALS: Normal to inspection, nondistended, normoactive bowel sounds present, Soft to palpation, non-tender, No hepatosplenomegaly present, no masses and no bruits PALPATION: Yes Soft to palpation and Yes No hepatosplenomegaly present Extremity: COMMON NORMALS: capillary refill normal, no clubbing, cyanosis or edema, no calf tenderness and no pedal edema Neuro: COMMON NORMALS: patient oriented x3 Psych: COMMON NORMALS: mental status grossly normal Data : 01/24/20 03:55 01/24/20 03:55 A&P Assessment and plan (1) Drug overdose: -Tizanidine, Lexapro, trazodone, ibuprofen Status: Acute Qualifiers: Encounter type: initial encounter Injury intent: intentional self-harm Qualified Code(s): T50.902A - Poisoning by unspecified drugs, medicaments and biological substances, intentional self-harm, initial encounter (2) Suicide attempt by multiple drug overdose: -We will moved patient to the neuropsychiatric unit today Status: Acute Qualifiers: Encounter type: initial encounter Qualified Code(s): T50.912A - Poisoning by multiple unspecified drugs, medicaments and biological substances, intentional self-harm, initial encounter (3) GERD (gastroesophageal reflux disease): Status: Acute (4) Obesity: Status: Acute (5) QT prolongation: -QTc as long as 545 ms -Likely secondary to hypokalemia, hypomagnesemia, trazodone, Lexapro -Maintain magnesium levels greater than 2, check magnesium levels this afternoon -Maintain potassium levels around 4.5 -Last QTC 444 milliseconds, QRS 85 ms significantly improved, sinus bradycardia has been resolved -Continue to do daily EKGs, monitor for chest pain -Poison control is monitoring Status: Acute (6) Hypomagnesemia: Resolved Status: Acute (7) Hypokalemia: Resolved Status: Acute (8) Serotonin syndrome: -Resolved Status: Acute (9) Bradycardia: -Resolved Status: Acute Additional A&P Information We will moved to MPU today Will require daily EKGs to monitor QTc interval and QRS We will continue to peripherally monitor Attestations Medical Necessity Statement*: Requires continued hospitalization due to suicide attempt, QT interval prolonged history, multiple drug overdose, will be moved to the neuropsychiatric unit Coding Level of Care Code Acute Press Assistant And Feeder for Chg Fwd Diagnoses Drug overdose T50.90 Encounter type: initial encounter Injury intent: intentional self-harm Suicide attempt by multiple drug overdose T50.912A Encounter type: initial encounter GERD (gastroesophageal reflux disease) K21.9 Obesity E66.9 QT prolongation R94.31 Hypomagnesemia E83.42 Hypokalemia E87.6 Serotonin syndrome G25.79 Bradycardia R00.1
[2020-01-24] MEDS: pantoprazole DR 40 mg Tablet PO (17:15)
[2020-01-25] VITALS (7 sets, daily range): BP systolic 96–132; BP diastolic 54–90; PULSE 57–78; RESP 16–21; TEMP 36.8–37; O2SAT 92–99
[2020-01-25 05:02] LABS: Basophils % 0.3 %; Eosinophils # 0.1 10^3/uL (0.0-0.8); Eosinophils % 1.8 %; Hematocrit 32.8 % (37.0-47.0); Hemoglobin 10.4 g/dL (11.5-15.3); Lymphocytes % 31.4 %; Mean Corpuscular HGB Conc 31.7 g/dL (30.0-36.0); Mean Corpuscular Hemoglobin 29.5 pg (28.0-34.0); Mean Corpuscular Volume 93.2 fL (81-99); Mean Platelet Volume 11.7 fL (7.4-10.4); Monocytes # 0.6 10^3/uL (0.2-0.9); Monocytes % 9.3 %; Neutrophils # 3.6 10^3/uL (1.8-7.7); Nucleated Red Blood Cells % 0 %; Platelet Count 203 10^3/cmm (130-400); Red Blood Count 3.52 10^6/uL (4.1-5.3); Red Cell Distribution Width 12.8 % (12.1-15.1); White Blood Count 6.2 10^3/uL (4.0-10.0)
[2020-01-25 05:26] LABS: Alanine Aminotransferase 14 U/L (0-33); Albumin Level 3.5 g/dL (3.5-5.2); Alkaline Phosphatase 51 IU/L (35-105); Anion Gap 14.2 (5-19); Aspartate Amino Transferase 14 U/L (0-32); Blood Urea Nitrogen 8 mg/dL (6-20); Calcium 8.7 mg/dL (8.5-10.5); Carbon Dioxide 27 mmol/L (22-29); Chloride 103 mmol/L (98-107); Globulin 2.6 g/dL (1.3-4.6); Glomerular Filtration Rate 141.2 mL/min (90-130); Glucose 99 mg/dL (65-115); Magnesium 1.8 mg/dL (1.7-2.3); Osmolality Calculated 286 mOsm/kg (285-295); Phosphorus 4.6 mg/dL (2.5-4.5); Potassium 4.2 mmol/L (3.5-5.1); Sodium 140 mmol/L (136-145); Total Bilirubin 0.2 mg/dL (0.15-1.2); Total Protein 6.1 g/dL (6.6-8.7)
[2020-01-25] MEDS: acetaminophen 325 mg Tablet 650 MG PO (07:09)
--- NOTE | 2020-01-25 07:09 | PM.NPN ---
Subjective NPU Subjective: Interval history: Patient and I get acquainted. She apparently was seen by Dr. Ceja and transferred to the NPU, where I saw her this morning. She is clearly heartbroken, having planned to a man who had been pursuing a relationship with another woman for some 6 years. She sent him off and is now grieving. This is not the first time and she has been told by her friend that she has terrible taste in men, time after time picking faithless knaves. She is planning to get into therapy at her doctor's office in [place]; he has a therapist working there. Cognitive behavioral therapy (CBT) is definitely indicated. I note with interest her QTC is 521 ms. Medications: Reviewed: Yes Medication Review Details: Current Medications Acetaminophen (Tylenol) 650 mg PO Q4H PRN PRN Reason: MILD PAIN Last Admin: 01/25/20 07:09 Dose: 650 mg Documented by: Albuterol Sulfate (Albuterol) 2.5 mg INHALATION Q4H.RESPIRATORY PRN PRN Reason: sob Last Admin: 01/25/20 04:50 Dose: 2.5 mg Documented by: Atorvastatin Calcium (Lipitor) 10 mg PO DAILY [facility] Benztropine Mesylate (Cogentin) 1 mg PO BID PRN PRN Reason: Mild Extrapyramidal symptoms Camphor/Menthol/Phenol (Blistex) 1 applic TOPICAL Q1H PRN PRN Reason: DRYNESS Diphenhydramine HCl (Benadryl) 50 mg IM ONCE PRN PRN Reason: Severe Extrapyramidal Symptoms Diphenhydramine HCl (Benadryl) 50 mg IM Q4H PRN PRN Reason: Severe Aggression Haloperidol (Haldol) 5 mg PO Q4H PRN PRN Reason: AGITATION Haloperidol Lactate (Haldol Inj) 5 mg IM Q4H PRN PRN Reason: Severe Aggression Hydrochlorothiazide (Hctz) 12.5 mg PO DAILY [place] Hydroxyzine Pamoate (Vistaril) 50 mg PO Q6H PRN PRN Reason: ANXIETY Loperamide HCl (Imodium Capsule) 2 mg PO Q6H PRN PRN Reason: DIARRHEA Lorazepam (Ativan) 2 mg IM Q4H PRN PRN Reason: Severe Aggression Nicotine (Nicoderm 21 Mg Patch) 1 patch TRANSDERMA DAILY PRN PRN Reason: NICOTINE WITHDRAWAL Nicotine Polacrilex (Nicorette) 2 mg BUCCAL Q2H PRN PRN Reason: NICOTINE WITHDRAWAL Olanzapine (Zyprexa Zydis) 5 mg PO Q4H PRN PRN Reason: Agitation/Psychosis Ondansetron HCl (Zofran) 4 mg PO Q6H PRN PRN Reason: NAUSEA AND VOMITING Pantoprazole Sodium (Protonix) 40 mg PO BID [facility] Last Admin: 01/24/20 17:15 Dose: 40 mg Documented by: Fluticasone/Salmeterol (Advair Diskus 500-50) 1 puff INHALATION BID [facility] Last Admin: 01/24/20 21:45 Dose: 1 puff Documented by: Trazodone HCl (Desyrel) 50 mg PO BEDTIME PRN PRN Reason: SLEEP Mental Status Exam MSE Comments: This is a 34-year-old morbidly obese female who presents clean and well organized. Mood is clearly despondent and affect is flat, with occasional tearfulness. Thought processes are integrated and free of any racing, blocking or looseness of association. Speech is of normal rate and volume, without dysarthria, aprosody or pressure. There is no evidence of psychosis, such as hallucination, delusions, ideas of reference, etc. Cognitive functions appear to be intact; she has a significant amount of insight into her psychopathology with respect to relationships. She believes she was not taking right at the time of her overdose. She now denies any suicidal or homicidal ideation, plan or intent. She has a lot of family resource and support in the region whence she comes. Vitals/I&O/Wt Last Vital Signs Temp 98.6 F 01/25/20 06:00 Pulse 73 01/25/20 06:00 Resp 21 H 01/25/20 06:00 BP 116/77 01/25/20 06:00 Pulse Ox 99 01/25/20 06:00 01/24/20 01/24/20 01/25/20 15:59 23:59 07:59 Intake Total 500 Balance 500 Weight last 48 hrs Weight 296 lb Data NPU : 01/25/20 04:33 01/25/20 04:33 A&P Assessment and plan (1) Bradycardia: The patient will require continuing monitoring. Status: Acute (2) Serotonin syndrome: Psychotropics should be avoided for the moment, what with risk factors such as gender, electrolyte imbalance and bradycardia being extant. Status: Acute (3) QT prolongation: Maintain magnesium levels greater than 2, check magnesium levels per cardiology and hospitalist management. -Maintain potassium levels around 4.5 Status: Acute (4) Suicide attempt by multiple drug overdose: Avoid psychotropics for the moment. Status: Acute Qualifiers: Encounter type: initial encounter Qualified Code(s): T50.912A - Poisoning by multiple unspecified drugs, medicaments and biological substances, intentional self-harm, initial encounter Involuntary Hold Information 96 Hour Hold: 96 Hour Involuntary Admission: Yes 96 Hour Hold Ending Date: 01/27/20 96 Hour Hold Ending Time: 14:05 Attestations NPU Medical Necessity Statement*: This patient has serious Cardiologic complications. I anticipate 4-5 additional midnights hospitalization Time Spent in Patient Care: Greater than 35 minutes (>than 50% of time spent in counselling and/or direct pt care on unit). We spent at least 55 minutes together. Coding Level of Care Code Acute Vice President Integrated for [facility] Diagnoses Bradycardia R00.1 Serotonin syndrome G25.79 QT prolongation R94.31 Suicide attempt by multiple drug overdose T50.912A Encounter type: initial encounter
[2020-01-25] MEDS: hydroCHLOROthiazide 25 mg Tablet 12.5 MG PO (08:45)
[2020-01-25] MEDS: pantoprazole DR 40 mg Tablet PO ×2 (08:45→17:11)
[2020-01-25] MEDS: atorvastatin 40 mg Tablet 10 MG PO (08:45)
--- NOTE | 2020-01-25 10:00 | ECG_ITS ---
Measurements Intervals [place] Rate: 61 P: 25 [place]: 149 QRS: 20 QRSD: 78 T: 5 QT: 444 QTc: 449 SINUS RHYTHM Compared to ECG 01/24/2020 09:02:44 T-wave abnormality no longer present Possible ischemia no longer present Electronically Signed On 01-25-2020 21:04:35 CDT by Jon Hinojosa M.D. [id number]
[2020-01-25] MEDS: trazodone 50 mg Tablet PO (20:53)
[2020-01-25] MEDS: hyDROXYzine 25 mg Capsule 50 MG PO (20:53)
[2020-01-26 06:00] VITALS: BP 93/59; PULSE 55; RESP 16; TEMP 36.6; O2SAT 98
--- NOTE | 2020-01-26 07:10 | PC.NURSE ---
pt was given PRN meds vistaril and trazodone at HS last evening
[2020-01-26] MEDS: pantoprazole DR 40 mg Tablet PO ×2 (08:31→16:36)
[2020-01-26] MEDS: hydroCHLOROthiazide 25 mg Tablet 12.5 MG PO (08:31)
[2020-01-26] MEDS: atorvastatin 40 mg Tablet 10 MG PO (08:31)
[2020-01-26 09:10] VITALS: PULSE 88; RESP 18; O2SAT 95
--- NOTE | 2020-01-26 10:00 | ECG_ITS ---
Measurements Intervals [place] Rate: 62 P: 54 [place]: 145 QRS: 26 QRSD: 85 T: 25 QT: 424 QTc: 431 SINUS RHYTHM POSSIBLE ANTERIOR MYOCARDIAL INFARCTION [30 ms Q WAVE IN V3/V4, OR R < 0.2 mV IN V4], PROBABLY OLD Compared to ECG 01/25/2020 09:33:33 Myocardial infarct finding now present Electronically Signed On 01-26-2020 20:35:43 CDT by Jon Hinojosa M.D. [id number]
[2020-01-26 13:59] VITALS: BP 92/61; PULSE 70; RESP 14; TEMP 36.9
--- NOTE | 2020-01-26 19:34 | PM.NDC ---
Diagnoses at Discharge Discharge Diagnosis (1) Bradycardia: Status: Acute Problem details: Cardiology department has monitored and managed this. (2) Serotonin syndrome: Status: Inactive (3) QT prolongation: Status: Acute Problem details: Cardiology department has monitored and managed this. (4) Suicide attempt by multiple drug overdose: Status: Acute Problem details: Patient has recovered without adverse effects. Mood is much improved. Qualifiers: Encounter type: initial encounter Qualified Code(s): T50.912A - Poisoning by multiple unspecified drugs, medicaments and biological substances, intentional self-harm, initial encounter Reason for Visit Reason for Visit: OVERDOSE ATTEMPT Hospital Course Hospital Course January 25, 2020. The patient has acquired significant insight relating to her very dangerous response to the faithless boyfriend who had been cheating on her (as has every man she has chosen). She remains rather fragile cardiologically and is certainly not medically clear for discharge, which question will be deferred to the hospitalist and prepress operator on the case. Involuntary Hold Information 96 Hour Hold: 96 Hour Involuntary Admission: Yes 96 Hour Hold Ending Date: 01/27/20 96 Hour Hold Ending Time: 14:05 Mental Status Exam MSE Comments: This is a 34-year-old morbidly obese female who presents clean and well organized. Mood is much brighter and affect is upbeat. Thought processes are integrated and free of any racing, blocking or looseness of association. Speech is of normal rate and volume, without dysarthria, aprosody or pressure. There is no evidence of psychosis, such as hallucination, delusions, ideas of reference, etc. Cognitive functions appear to be intact; she has a significant amount of insight into her psychopathology with respect to relationships. She believes she was not taking right at the time of her overdose. She now denies any suicidal or homicidal ideation, plan or intent. She has a lot of family support in the region [place] she comes. Discharge Data Vitals: Last Vital Signs Temp 98.5 F 01/26/20 13:59 Pulse 70 01/26/20 13:59 Resp 14 01/26/20 13:59 BP 92/61 01/26/20 13:59 Pulse Ox 95 01/26/20 09:10 Discharge Plan Discharge Patient Disposition: Home, Self-Care Condition: Stable Prescriptions: New pantoprazole 40 mg Tablet,Delayed Release (Dr/Ec) 40 mg PO BID 30 Days Qty: 60 RF: 1 Continued hydrochlorothiazide 12.5 mg tablet 12.5 mg PO DAILY RF: 0 omeprazole 20 mg capsule,delayed release(DR/EC) 20 mg PO BID RF: 0 trazodone 50 mg tablet 50 mg PO DAILY RF: 0 simvastatin 20 mg tablet 20 mg PO DAILY RF: 0 fluticasone propion-salmeterol 500-50 mcg/dose blister with device 1 inh INHALATION BID RF: 0 Advair Diskus 500-50 mcg/dose blister with device INHALATION RF: 0 ipratropium-albuterol 0.5 mg-3 mg(2.5 mg base)/3 mL solution for nebulization INHALATION RF: 0 Discontinued escitalopram oxalate 10 mg tablet 10 mg PO DAILY RF: 0 tizanidine 4 mg capsule 4 mg PO Q6H PRN (Reason: breathing) RF: 0 Discharge Orders: Discharge Order (Routine); Ordered 01/26/20 Ordered By: Roscoe Malhotra Referrals: [facility] [Other] (with therapist Gladys SORIANOW 1 hour appointment) Guilherme Rush [Primary Care Provider] - 02/04/20 9:40 am (Hospital follow up) Discharge Diet: Usual diet Discharge Activity: Resume usual activity Discharge Attestations NPU Time Spent in Discharge Care*: greater than 30 min Specific Discharge Activities: Specific discharge activities: educating patient, discussing with case management social worker/social workers/dc planners, documenting/other paperwork and evaluating patient/reviewing data Time Spent in Smoking Cessation: Time spent discussing smoking cessation with patient: 3 to 10 minutes Details of Smoking Cessation Education: Primary and secondary risk. Octogenarian study. Coding Level of Care Code Acute Mixer Whipped Topping for Chg Fwd Diagnoses Bradycardia R00.1 Serotonin syndrome G25.79 QT prolongation R94.31 Suicide attempt by multiple drug overdose T50.912A Encounter type: initial encounter
--- NOTE | 2020-01-26 19:53 | PC.NURSE ---
The patient has been seen by Dr. Malhotra and has discharge order. The patient was agreeable with discharge. She was alert and oriented x 4. She denied thoughts of self harm or suicide. Discharge meds reviewed. Follow-up providers reviewed. The patient verbalized understanding. The patient left the unit at 1952 accompanied by WORKFORCE MANAGEMENT ANALYST to ED waiting area to meet her family member who will transport her home.
[2020-01-26 20:09] VITALS: BP 128/90; PULSE 81; RESP 18; TEMP 36.6; O2SAT 98
--- NOTE | 2020-01-26 20:51 | PC.NURSE ---
Pt was discharged and escorted to private. Prior to leaving, pt's medication from pyxis was returned to pt. Pt sorted through said meds and asked staff to discard medication and bottles that she no longer was prescribed. Medication bottles to discard as follows: Ibuprofen, Ferrous Sulfate, Ondansetron, Reglan, empty Dicyclomine bottle, empty Trazodone bottle, empty Lexapro bottle. housekeeping department worker notified that pt left these items and it was advised to keep said items in the pyxis for 1 week in case pt returned wanted said items. If pt does not retrieve said item after 1 week, then items need to be sent to pharmacy to be destroyed.
== END 2020-01-26 19:52 | disposition home or self-care (01) | DRG 918 ==
LOC: ER 20:37 → ICU 23:26 → NP 01-24 11:16
PROVIDERS: Family Medicine; Admitting Provider Internal Medicine; PCP Family Medicine; Visit Provider Student in an Organized Health Care Education/Training Program
DX: T43.212A Poisoning by selective serotonin and norepinephrine reuptake inhibitors, intentional self-harm, initial encounter (principal); Z68.42 Body mass index [BMI] 45.0-49.9, adult; T42.8X2A Poisoning by antiparkinsonism drugs and other central muscle-tone depressants, intentional self-harm, initial encounter; T43.222A Poisoning by selective serotonin reuptake inhibitors, intentional self-harm, initial encounter; Y92.009 Unspecified place in unspecified non-institutional (private) residence as the place of occurrence of the external cause; E66.01 Morbid (severe) obesity due to excess calories; K21.9 Gastro-esophageal reflux disease without esophagitis; I10 Essential (primary) hypertension; F41.9 Anxiety disorder, unspecified; R00.1 Bradycardia, unspecified; J45.909 Unspecified asthma, uncomplicated; K29.70 Gastritis, unspecified, without bleeding; E87.6 Hypokalemia; E83.42 Hypomagnesemia
CPT/HCPCS: 12345; 36415; 36416; 36600; 80053; 80306; 80307; 81001; 81025; 82803; 82962; 83605; 83735; 84100; 84443; 85025; 85610; 93005; 94640; 94667; 96375; 99284; A9270; C9113; J1265; J1650; J2001; J3475; J3480; J7030; J7611

== ENCOUNTER → 2020-02-19 12:52 | Outpatient (BNVA) | payer MEDICAID, SELFPAY | PROVIDERS: PCP Family Medicine; Visit Provider Psychiatry & Neurology Psychiatry | DX: F41.1 Generalized anxiety disorder (principal); F33.2 Major depressive disorder, recurrent severe without psychotic features; F41.9 Anxiety disorder, unspecified | CPT/HCPCS: 99204 ==

== ENCOUNTER → 2020-03-25 08:49 | Outpatient (BNVA) | payer MEDICAID, SELFPAY | PROVIDERS: PCP Family Medicine; Visit Provider Psychiatry & Neurology Psychiatry | DX: F33.2 Major depressive disorder, recurrent severe without psychotic features (principal); F41.1 Generalized anxiety disorder | CPT/HCPCS: 99213 ==

== ENCOUNTER → 2020-06-16 09:08 | Outpatient (BNVA) | payer MEDICAID, SELFPAY | PROVIDERS: PCP Family Medicine; Visit Provider Psychiatry & Neurology Psychiatry | DX: F33.2 Major depressive disorder, recurrent severe without psychotic features (principal); F41.1 Generalized anxiety disorder | CPT/HCPCS: 99214 ==

== ENCOUNTER → 2022-02-02 14:13 | Outpatient (BNVA) | payer MEDICAID, SELFPAY | PROVIDERS: PCP Family Medicine; Visit Provider Specialist | DX: R20.2 Paresthesia of skin (principal); R20.0 Anesthesia of skin | CPT/HCPCS: 95910; 95912 ==

== ENCOUNTER → 2025-04-17 08:18 | Outpatient (BNVA) | payer MEDICAID, SELFPAY | PROVIDERS: PCP Family Medicine; Visit Provider Physician Assistant | DX: M25.511 Pain in right shoulder (principal); M75.41 Impingement syndrome of right shoulder | CPT/HCPCS: 73030 ==

== ENCOUNTER 2025-06-26 08:43 | Outpatient (CLI) | payer MEDICAID, SELFPAY ==
--- NOTE | 2025-06-26 08:45 | MR_ITS ---
WS: [id number] MRI RIGHT SHOULDER NONCONTRAST TECHNIQUE: Sagittal T2, coronal T1, T2 and proton density imaging. Axial gradient PDE imaging. CLINICAL INFORMATION: impingement of right shoulder COMPARISON: None. FINDINGS: Mild degenerative arthritis AC joint with slight subacromial spurring. Mild narrowing of the subacromial space. Normal supraspinatus and infraspinatus. Trace subacromial fluid. Normal teres minor. Subscapularis tendon is normal in appearance. Biceps tendon appears intact within the bicipital groove. Intra- articular biceps tendon appears intact. Glenoid labrum appears grossly normal. MR/MR shoulder RT wo con* [id number] IMPRESSION: 1. Mild degenerative arthritis AC joint with mild narrowing of the subacromial space with subacromial spurring. 2. Supraspinatus and infraspinatus appear intact. Normal rotator cuff. 3. Biceps tendon appears intact within the bicipital groove. 4. Intra-articular biceps tendon appears intact. 5. No other acute findings.
== END 2025-06-26 08:44 | disposition home or self-care (01) ==
LOC: RAD 08:44
PROVIDERS: PCP Family Medicine; Visit Provider Physician Assistant
DX: M75.41 Impingement syndrome of right shoulder (principal); M19.011 Primary osteoarthritis, right shoulder; M75.91 Shoulder lesion, unspecified, right shoulder
CPT/HCPCS: 73221